=== PATIENT | female | born 1985 | race Caucasian/White ===

== ENCOUNTER 2016-08-27 18:46 | Emergency (ER) | payer SELFPAY ==
--- NOTE | 2016-08-27 19:47 | ED Physician Documentation ---
PD HPI NVD - Stated complaint Stated Complaint: WEAKNESS/VOMITTING - Chief complaint Chief Complaint: General - History obtained from History obtained from: Patient - History of Present Illness Timing - onset: Today Timing - duration: Days (1/2) Timing - details: Abrupt onset, Still present Associated symptoms: Abdominal pain (cramping intermittent, severe at times), Loss of appetite. No: Dizzy, Near syncope / syncope Contributing factors: No: Sick contact, Bad food, Travel, Recent antibiotics Improved by: Position (knees drawn up lying on side). No: Vomiting Worsened by: Eating. No: Position Similar symptoms before: Has not had sx before (does have some IBS with irregular stools, but not associated with diarrhea nor abd cramps of this severity in the past.) Review of Systems Constitutional: reports: Myalgias. denies: Fever, Chills Nose: denies: Rhinorrhea / runny nose, Congestion Throat: denies: Sore throat Respiratory: denies: Cough GI: reports: Abdominal Pain, Nausea, Vomiting, Diarrhea. denies: Abdominal Swelling, Hematemesis, Bloody / black stool : denies: Dysuria, Frequency, Discharge Neurologic: reports: Generalized weakness. denies: Focal weakness, Numbness, Near syncope PD PAST MEDICAL HISTORY - Past Medical History Past Medical History: Yes Cardiovascular: None Respiratory: None Neuro: None Endocrine/Autoimmune: None GI: Other (IBS with irregular stools) Other Past Medical History: IBS - Past Surgical History Past Surgical History: No - Present Medications Home Medications: Ambulatory Orders Medication Instructions Recorded Confirmed Dicyclomine [Bentyl] 08/27/16 Diphenoxylate/Atropine [Lomotil] 1 each PO QID PRN #15 tablet 08/27/16 HYDROcod/ACETAM 5/325 [[place] 5/325] 1 tab PO Q6H PRN #15 tablet 08/27/16 Ondansetron HCl [Zofran] 4 mg PO Q6H PRN #20 tablet 08/27/16 - Allergies Allergies/Adverse Reactions: Allergies Allergy/AdvReac Type Severity Reaction Status Date / Time No Known Drug Allergies Allergy Verified 08/27/16 19:08 - Social History Does the pt smoke?: Yes Smoking Status: Current every day smoker Does the pt drink ETOH?: No Does the pt have substance abuse?: No - Immunizations Immunizations are current?: Yes - POLST Patient has POLST: No PD ED PE NORMAL - Vitals Vital signs reviewed: Yes - General General: Alert and oriented X 3, Well developed/nourished, Other (marked discomfort from abd cramp diffuse) - HEENT HEENT: PERRL (nonicteric), Pharynx benign. No: Moist mucous membranes - Neck Neck: Supple, no meningeal sign, No adenopathy - Cardiac Cardiac: RRR, No murmur - Respiratory Respiratory: Clear bilaterally - Abdomen Abdomen: Soft, Non tender (actually is not tender to palpation), Non distended, No organomegaly. No: Normal bowel sounds (increased) - Female Female : Deferred - Rectal Rectal: Deferred - Back Back: No CVA TTP - Derm Derm: Normal color, Warm and dry - Extremities Extremities: No tenderness to palpate, Normal ROM s pain - Neuro Neuro: Alert and oriented X 3, No motor deficit, Normal speech Results - Vitals Vitals: Oxygen O2 Source Room air - Labs Labs: Laboratory Tests 08/27/16 08/27/16 20:13 20:13 WBC 18.3 H RBC 5.12 Hgb 15.3 Hct 45.5 MCV 88.8 MCH 30.0 MCHC 33.8 RDW 12.3 Plt Count 325 MPV 7.9 Neut # Not Reportable Lymph # Not Reportable Rankin # Not Reportable Eos # Not Reportable Baso # Not Reportable Absolute Nucleated RBC Not Reportable Band Neuts % (Manual) 19 H Neutrophils # (Manual) 16.8 H Lymphocytes # (Manual) 0.7 L Monocytes # (Manual) 0.7 Nucleated RBCs Not Reportable WBC Morphology 1+ TOXIC GRANULATION Platelet Estimate NORMAL (130-450,000) Platelet Morphology PLATELET CLUMPING RBC Morph Micro Appear NORMAL APPEARANCE Sodium 138 Potassium 3.5 Chloride 101 Carbon Dioxide 24 Anion Gap 13.0 BUN 17 Creatinine 0.8 Estimated GFR (MDRD) 84 L Glucose 158 H Calcium 9.8 Total Bilirubin 1.7 H AST 27 ALT 19 Alkaline Phosphatase 37 L Total Protein 8.4 H Albumin 5.0 Globulin 3.4 Albumin/Globulin Ratio 1.5 Lipase 54 H PD MEDICAL DECISION MAKING - ED course Complexity details: re-evaluated patient (much improved with IV fluids and meds. ), considered differential, d/w patient Departure - Departure Disposition: 01 Home, Self Care Clinical Impression: Nausea, vomiting and diarrhea, Abdominal cramping Condition: Stable Record reviewed to determine appropriate education?: Yes Instructions: ED Nausea Vomiting Prescriptions: Diphenoxylate/Atropine [Lomotil] 1 each PO QID PRN #15 tablet PRN Reason: Diarrhea HYDROcod/ACETAM 5/325 [[place] 5/325] 1 tab PO Q6H PRN #15 tablet PRN Reason: Pain Ondansetron HCl [Zofran] 4 mg PO Q6H PRN #20 tablet PRN Reason: Nausea / Vomiting Comments: frequent fluids. Initial bland food such as rice, breads, pasta, and progress as able. Zofran as needed for nausea/vomiting, Lomotil for diarrhea an Tylenol or Hydrocodone for cramps/pains. Recheck if not improved over the next 1-2 days , sooner if worse (worse pain, fevers, bloody stools, persistent focal pain, etc ). Discharge Date/Time: 08/27/16 21:56
[2016-08-27] MEDS ORDERED: KETOROLAC 60 MG/2 ML VIAL IVP STA (19:57)
[2016-08-27] MEDS ORDERED: SODIUM CHLORIDE 0.9% 1,000 ML IV ONE ×2 (19:57→19:58)
[2016-08-27] MEDS ORDERED: ONDANSETRON 4 MG/2 ML VIAL IVP STA (19:57)
[2016-08-27] MEDS ORDERED: HYDROmorphone 1 MG/ML SYRINGE IVP STA (19:57)
[2016-08-27] MEDS ORDERED: HYDROmorphone 1 MG/ML SYRINGE ONE (20:05)
[2016-08-27] MEDS ORDERED: KETOROLAC 30 MG/ML VIAL ONE (20:05)
[2016-08-27] MEDS ORDERED: ONDANSETRON 4 MG/2 ML VIAL ONE (20:05)
[2016-08-27 20:19] LABS: BASOPHILS % (AUTO) 0.4 %; EOSINOPHILS % (AUTO) 0.1 %; HCT - HEMATOCRIT 45.5 % (37.0-47.0); HGB - HEMOGLOBIN 15.3 g/dL (12.0-16.0); LYMPHOCYTES % (AUTO) 1.6 %; MEAN CORPUSCULAR HGB CONC 33.8 g/dL (32.0-36.0); MEAN CORPUSCULAR VOLUME 88.8 fL (81.0-99.0); MEAN PLATELET VOLUME 7.9 fL (7.9-10.8); MONOCYTES % (AUTO) 3.6 %; NEUTROPHILS % (AUTO) 94.3 %; RED BLOOD COUNT 5.12 10^6/uL (4.20-5.40); RED CELL DISTRIBUTION WIDTH 12.3 % (12.0-15.0); UNCORRECTED WHITE BLOOD COUNT 18.3 x10^3/uL; WHITE BLOOD COUNT 18.3 x10^3/uL (4.8-10.8)
[2016-08-27 20:33] LABS: ALBUMIN/GLOBULIN RATIO 1.5 (1.0-2.2); BILIRUBIN,TOTAL 1.7 mg/dL (0.2-1.0); CALCIUM 9.8 mg/dL (8.5-10.3); CREATININE 0.8 mg/dL (0.4-1.0); POTASSIUM 3.5 mmol/L (3.5-5.0); TOTAL PROTEIN 8.4 g/dL (6.7-8.2)
[2016-08-27 21:06] LABS: BAND NEUTROPHILS % (MANUAL) 19 %; LYMPHOCYTES % (MANUAL) 4 %; NEUTROPHILS % (MANUAL) 73 %; NP AUTO DIFFERENTIAL? YES; NP MAN DIFFERENTIAL? NO; PLATELET ESTIMATE, MANUAL NORMAL (130-450,000) (NORMAL)
[2016-08-27 21:07] LABS: PLATELET MORPHOLOGY PLATELET CLUMPING (NORMAL); WBC MORPHOLOGY (MULTIPLE) 1+ TOXIC GRANULATION (NORMAL)
[2016-08-27] MEDS ORDERED: ONDANSETRON ODT 4 MG Prepack 2 TL PRN (21:29)
[2016-08-27] MEDS ORDERED: DIPHENOX/ATROPINE 2.5/0.025 MG TABLET PO STA (21:29)
[2016-08-27] MEDS ORDERED: HYDROcod/ACET 5/325 Prepack 6 PO ONE ×2 (21:29→21:43)
[2016-08-27] MEDS ORDERED: DIPHENOX/ATROPINE 2.5/0.025 MG TABLET PO ONE (21:42)
[2016-08-27] MEDS ORDERED: ONDANSETRON ODT 4 MG Prepack 2 TL ONE (21:43)
[2016-08-27 21:58] VITALS: BP 95/50
== END 2016-08-27 21:56 | disposition home or self-care (01) ==
LOC: ED 18:46
DX: R11.2 Nausea with vomiting, unspecified (principal); R19.7 Diarrhea, unspecified; R10.9 Unspecified abdominal pain; K58.9 Irritable bowel syndrome, unspecified; F17.200 Nicotine dependence, unspecified, uncomplicated
CPT/HCPCS: 36415; 80053; 83690; 85025; 96374; 96375; 99283; 99284; A9270; J1170